=== PATIENT | female | born 1945 | race Caucasian/White ===

== ENCOUNTER 2018-01-28 16:34 | Inpatient (IN) ==
[2018-02-03 12:25] VITALS: BP 157/95
== END 2018-02-03 14:30 | disposition home or self-care (01) | DRG 305 ==
LOC: N.ED 16:34 → N.EDINP 18:41 → SUATTDRO 18:41 → N.3E 19:13
PROVIDERS: ADMIT Internal Medicine; ATTEND Internal Medicine

== ENCOUNTER 2018-03-24 02:48 | Inpatient (IN) ==
[2018-03-24] MEDS ORDERED: SODIUM CHLORIDE 0.9% 1,000 ML IV STA (03:00)
[2018-03-24] MEDS ORDERED: DILTIAZEM 50 MG/10 ML VIAL IV STA (03:03)
[2018-03-24] MEDS ORDERED: DILTIAZEM 25 MG/5 ML VIAL IV ONE ×2 (03:10→11:21)
[2018-03-24 03:45] LABS: Basophils % 0.2 % (0.0-0.8); Eosinophils # 0.1 10*3/uL (0.0-0.87); Eosinophils % 0.4 % (0.00-10.9); Hematocrit 42.7 VOL% (35.7-47.0); Hemoglobin 14.2 GM/DL (12.0-16.0); Immature Granulocytes % 0.5 %; Immature Granulocytes Absolute 0.08 #; Lymphocytes # 1.3 10*3/uL (1.4-4.0); Lymphocytes % 8.3 % (21.3-54.2); Mean Corpuscular HGB Conc 33.3 GM/DL (32-36); Mean Corpuscular Hemoglobin 28 PG (27-34); Mean Corpuscular Volume 83.2 FL (87-102); Mean Platelet Volume 9.6 FL (9.6-12.0); Monocytes # 0.9 10*3/uL (0.11-0.8); Monocytes % 5.2 % (1.7-12.7); Neutrophils # 13.8 10*3/uL (1.4-7.4); Neutrophils % 85.4 % (38.7-73.9); Platelet Count 164 T/CUMM (130-400); Red Blood Count 5.13 MC/CUMM (3.8-5.5); Red Cell Distribution Width 13.4 % (9.3-17.3); White Blood Count 16.2 T/CUMM (4-12)
[2018-03-24 03:56] LABS: Apearance,Urine CLEAR (Clear); Bilirubin,Urine Negative (Negative); Blood, Urine Small mg/dL (Negative); Glucose,Urine (UA) Negative (Negative); Ketones,Urine 20 mg/dL (Negative); Nitrite,Urine Negative (Negative); Protein,Urine 100 MG/DL; RBC,Urine 3 /HPF (0-4); Squamous Epithelial Cell,Urine Occasional /HPF (0-10); Urine Color Straw (Yellow); Urine Urobilinogen < 2.0 EU/DL (0.2-1.0); WBC,Urine 1 /HPF (0-6)
[2018-03-24 04:09] LABS: Albumin 4.3 G/DL (3.4-5.0); Bilirubin,Total 0.5 MG/DL (0.2-1.0); Calcium 10.1 MG/DL (8.5-10.1); Potassium 3.5 MMOL/L (3.5-5.1); Total Protein 8.3 G/DL (6.4-8.3)
[2018-03-24] MEDS ORDERED: diphenhydrAMINE CAP 25 MG CAPSULE PO PRN (05:35)
[2018-03-24] MEDS ORDERED: ALBUTEROL 2.5 MG/3 ML NEB RESP TX PRN (05:35)
[2018-03-24] MEDS ORDERED: ACETAMINOPHEN 325 MG TABLET PO PRN (05:35)
[2018-03-24] MEDS ORDERED: ONDANSETRON 4 MG/2 ML VIAL IV PRN (05:35)
[2018-03-24] MEDS ORDERED: DILTIAZEM INJ 100 MG in SODIUM CHLORIDE 0.9% 100 ML IV SCH (06:00)
[2018-03-24 06:24] LABS: Lactic Acid 3.5 MMOL/L (0.4-2.0)
[2018-03-24] MEDS ORDERED: cloNIDine 0.1 MG TABLET PO PRN (06:44)
[2018-03-24] MEDS: metroNIDAZOLE INJ 500 MG in PREMIX 1 EACH IV SCH ×2 (07:43→17:59)
[2018-03-24 09:29] LABS: Lactic Acid 2.5 MMOL/L (0.4-2.0)
[2018-03-24] MEDS: LEVOFLOXACIN INJ 500 MG in PREMIX 1 EACH IV SCH (10:22)
[2018-03-24] MEDS: CYANOCOBALAMIN 500 MCG TABLET PO SCH (10:23)
[2018-03-24] MEDS: PANTOPRAZOLE 40 MG TABLET PO SCH (10:23)
[2018-03-24] MEDS: MAGNESIUM CHLORIDE 64 MG TABLET PO SCH ×2 (10:23→21:08)
[2018-03-24] MEDS: POTASSIUM CHLORIDE 20 MEQ TABLET PO SCH (10:23)
[2018-03-24] MEDS: CLOPIDOGREL 75 MG TABLET PO SCH (10:23)
[2018-03-24] MEDS: TORSEMIDE 20 MG TABLET PO SCH (10:23)
[2018-03-24] MEDS: OMEGA 3 ACID ETHYL ESTERS 1 GM CAPSULE PO SCH (10:23)
[2018-03-24] MEDS: OLMESARTAN 20 MG TABLET PO SCH (10:24)
[2018-03-24] MEDS: ASPIRIN EC 81 MG TABLET PO SCH (10:24)
[2018-03-24] MEDS: amLODIPine 10 MG TABLET PO SCH (10:24)
[2018-03-24] MEDS: METHYLDOPA 500 MG TABLET PO SCH ×2 (10:27→21:08)
[2018-03-24] MEDS: PANTOPRAZOLE 40 MG VIAL IV SCH (10:28)
[2018-03-24] MEDS ORDERED: METOPROLOL TARTRATE 5 MG/5 ML VIAL IV ONE (13:17)
[2018-03-24] MEDS: SOTALOL 80 MG TABLET PO SCH (14:28)
[2018-03-24 15:07] LABS: Lactic Acid 4.1 MMOL/L (0.4-2.0)
[2018-03-24] MEDS: VANCOMYCIN INJ 1,000 MG in SODIUM CHLORIDE 0.9% 250 ML IV SCH (15:15)
[2018-03-24] MEDS: APIXABAN 5 MG TABLET PO SCH ×2 (15:15→21:08)
[2018-03-24] MEDS: SODIUM CHLORIDE 0.9% 1,000 ML IV SCH ×2 (17:53→17:59)
[2018-03-24] MEDS: NEBIVOLOL 10 MG TABLET PO SCH (21:09)
[2018-03-24] MEDS: ROSUVASTATIN 10 MG TABLET PO SCH (21:09)
[2018-03-25] MEDS: SOTALOL 80 MG TABLET PO SCH ×3 (00:13→21:43)
[2018-03-25] MEDS: SODIUM CHLORIDE 0.9% 1,000 ML IV SCH ×2 (03:50→18:12)
[2018-03-25] MEDS: VANCOMYCIN INJ 1,000 MG in SODIUM CHLORIDE 0.9% 250 ML IV SCH (04:20)
[2018-03-25] MEDS: metroNIDAZOLE INJ 500 MG in PREMIX 1 EACH IV SCH (06:00)
[2018-03-25 07:23] LABS: Basophils % 0.3 % (0.0-0.8); Eosinophils # 0.1 10*3/uL (0.0-0.87); Eosinophils % 1.1 % (0.00-10.9); Hematocrit 36.6 VOL% (35.7-47.0); Hemoglobin 12.3 GM/DL (12.0-16.0); Immature Granulocytes % 0.6 %; Immature Granulocytes Absolute 0.04 #; Lymphocytes # 0.8 10*3/uL (1.4-4.0); Lymphocytes % 13.2 % (21.3-54.2); Mean Corpuscular HGB Conc 33.6 GM/DL (32-36); Mean Corpuscular Hemoglobin 28 PG (27-34); Mean Corpuscular Volume 83.2 FL (87-102); Mean Platelet Volume 9.2 FL (9.6-12.0); Monocytes # 0.5 10*3/uL (0.11-0.8); Monocytes % 8.6 % (1.7-12.7); Neutrophils # 4.8 10*3/uL (1.4-7.4); Neutrophils % 76.2 % (38.7-73.9); Red Cell Distribution Width 13.5 % (9.3-17.3); White Blood Count 6.3 T/CUMM (4-12)
[2018-03-25 07:26] LABS: Platelet Count 113 T/CUMM (130-400)
[2018-03-25 07:49] LABS: Calcium 8.6 MG/DL (8.5-10.1); Potassium 3.6 MMOL/L (3.5-5.1)
[2018-03-25] MEDS: LEVOFLOXACIN INJ 500 MG in PREMIX 1 EACH IV SCH (12:02)
[2018-03-25] MEDS: CYANOCOBALAMIN 500 MCG TABLET PO SCH (12:03)
[2018-03-25] MEDS: MAGNESIUM CHLORIDE 64 MG TABLET PO SCH ×2 (12:03→21:41)
[2018-03-25] MEDS: PANTOPRAZOLE 40 MG TABLET PO SCH (12:04)
[2018-03-25] MEDS: TORSEMIDE 20 MG TABLET PO SCH (12:05)
[2018-03-25] MEDS: amLODIPine 10 MG TABLET PO SCH (12:05)
[2018-03-25] MEDS: OLMESARTAN 20 MG TABLET PO SCH (12:05)
[2018-03-25] MEDS: POTASSIUM CHLORIDE 20 MEQ TABLET PO SCH (12:05)
[2018-03-25] MEDS: OMEGA 3 ACID ETHYL ESTERS 1 GM CAPSULE PO SCH (12:05)
[2018-03-25] MEDS: METHYLDOPA 500 MG TABLET PO SCH ×2 (12:06→21:44)
[2018-03-25] MEDS: ASPIRIN EC 81 MG TABLET PO SCH (12:06)
[2018-03-25] MEDS: CLOPIDOGREL 75 MG TABLET PO SCH (12:06)
[2018-03-25] MEDS: APIXABAN 5 MG TABLET PO SCH ×2 (12:06→21:41)
[2018-03-25] MEDS: PANTOPRAZOLE 40 MG VIAL IV SCH (12:14)
[2018-03-25] MEDS: DOXAZOSIN 1 MG TABLET PO SCH ×2 (12:17→21:44)
[2018-03-25] MEDS: CHLORTHALIDONE 25 MG TABLET PO SCH (15:47)
[2018-03-25] MEDS: ROSUVASTATIN 10 MG TABLET PO SCH (21:42)
[2018-03-25] MEDS: NEBIVOLOL 10 MG TABLET PO SCH (21:43)
[2018-03-25] MEDS: ISOSORBIDE DINITRATE 20 MG TABLET PO SCH (21:44)
[2018-03-26 04:27] LABS: Basophils % 0.5 % (0.0-0.8); Eosinophils # 0.2 10*3/uL (0.0-0.87); Eosinophils % 3.3 % (0.00-10.9); Hematocrit 32.9 VOL% (35.7-47.0); Immature Granulocytes % 0.3 %; Immature Granulocytes Absolute 0.02 #; Lymphocytes # 1.2 10*3/uL (1.4-4.0); Lymphocytes % 16.8 % (21.3-54.2); Mean Corpuscular HGB Conc 33.4 GM/DL (32-36); Mean Corpuscular Hemoglobin 28 PG (27-34); Mean Corpuscular Volume 83.5 FL (87-102); Monocytes # 0.7 10*3/uL (0.11-0.8); Monocytes % 9.1 % (1.7-12.7); Neutrophils # 5.1 10*3/uL (1.4-7.4); Platelet Count 118 T/CUMM (130-400); Red Blood Count 3.94 MC/CUMM (3.8-5.5); Red Cell Distribution Width 13.5 % (9.3-17.3); White Blood Count 7.3 T/CUMM (4-12)
[2018-03-26 04:43] LABS: Calcium 9.1 MG/DL (8.5-10.1); Osmolality,Calculated 284.1 MOS/KG (273-304); Potassium 3.5 MMOL/L (3.5-5.1)
[2018-03-26] MEDS: POTASSIUM CHLORIDE 20 MEQ TABLET PO SCH (09:33)
[2018-03-26] MEDS: amLODIPine 10 MG TABLET PO SCH (09:33)
[2018-03-26] MEDS: PANTOPRAZOLE 40 MG TABLET PO SCH (09:33)
[2018-03-26] MEDS: TORSEMIDE 20 MG TABLET PO SCH (09:33)
[2018-03-26] MEDS: SOTALOL 80 MG TABLET PO SCH (09:34)
[2018-03-26] MEDS: DOXAZOSIN 1 MG TABLET PO SCH ×2 (09:34→22:03)
[2018-03-26] MEDS: CYANOCOBALAMIN 500 MCG TABLET PO SCH (09:34)
[2018-03-26] MEDS: ISOSORBIDE DINITRATE 20 MG TABLET PO SCH ×2 (09:35→22:04)
[2018-03-26] MEDS: CHLORTHALIDONE 25 MG TABLET PO SCH (09:36)
[2018-03-26] MEDS: OMEGA 3 ACID ETHYL ESTERS 1 GM CAPSULE PO SCH (09:36)
[2018-03-26] MEDS: MAGNESIUM CHLORIDE 64 MG TABLET PO SCH ×2 (09:36→22:04)
[2018-03-26] MEDS: METHYLDOPA 500 MG TABLET PO SCH ×2 (09:37→22:04)
[2018-03-26] MEDS: APIXABAN 5 MG TABLET PO SCH ×2 (09:38→22:04)
[2018-03-26] MEDS: CLOPIDOGREL 75 MG TABLET PO SCH (09:38)
[2018-03-26] MEDS: ASPIRIN EC 81 MG TABLET PO SCH (09:38)
[2018-03-26] MEDS: OLMESARTAN 20 MG TABLET PO SCH (09:38)
[2018-03-26] MEDS: PANTOPRAZOLE 40 MG VIAL IV SCH (09:39)
[2018-03-26] MEDS: ROSUVASTATIN 10 MG TABLET PO SCH (22:04)
[2018-03-26] MEDS: NEBIVOLOL 10 MG TABLET PO SCH (22:04)
[2018-03-27] MEDS: SOTALOL 80 MG TABLET PO SCH ×3 (01:33→21:15)
[2018-03-27 03:55] LABS: Basophils % 0.4 % (0.0-0.8); Eosinophils # 0.2 10*3/uL (0.0-0.87); Eosinophils % 2.3 % (0.00-10.9); Hematocrit 35.8 VOL% (35.7-47.0); Hemoglobin 12.3 GM/DL (12.0-16.0); Immature Granulocytes % 0.4 %; Immature Granulocytes Absolute 0.03 #; Lymphocytes # 1.2 10*3/uL (1.4-4.0); Lymphocytes % 15.7 % (21.3-54.2); Mean Corpuscular HGB Conc 34.4 GM/DL (32-36); Mean Corpuscular Hemoglobin 28 PG (27-34); Mean Corpuscular Volume 80.3 FL (87-102); Mean Platelet Volume 9.6 FL (9.6-12.0); Monocytes # 0.6 10*3/uL (0.11-0.8); Monocytes % 8.5 % (1.7-12.7); Neutrophils # 5.4 10*3/uL (1.4-7.4); Neutrophils % 72.7 % (38.7-73.9); Platelet Count 146 T/CUMM (130-400); Red Blood Count 4.46 MC/CUMM (3.8-5.5); Red Cell Distribution Width 13.3 % (9.3-17.3); White Blood Count 7.5 T/CUMM (4-12)
[2018-03-27 04:11] LABS: Osmolality,Calculated 288.1 MOS/KG (273-304); Potassium 3.2 MMOL/L (3.5-5.1)
[2018-03-27] MEDS ORDERED: MAGNESIUM SULF RIDER 2 GM in PREMIX 1 EACH IV ONE (07:35)
[2018-03-27] MEDS: CHLORTHALIDONE 25 MG TABLET PO SCH (09:00)
[2018-03-27] MEDS: OLMESARTAN 20 MG TABLET PO SCH (09:27)
[2018-03-27] MEDS: TORSEMIDE 20 MG TABLET PO SCH (09:28)
[2018-03-27] MEDS: MAGNESIUM CHLORIDE 64 MG TABLET PO SCH ×2 (09:28→21:15)
[2018-03-27] MEDS: OMEGA 3 ACID ETHYL ESTERS 1 GM CAPSULE PO SCH (09:28)
[2018-03-27] MEDS: PANTOPRAZOLE 40 MG TABLET PO SCH (09:30)
[2018-03-27] MEDS: CYANOCOBALAMIN 500 MCG TABLET PO SCH (09:30)
[2018-03-27] MEDS: DOXAZOSIN 1 MG TABLET PO SCH ×2 (09:30→21:14)
[2018-03-27] MEDS: CLOPIDOGREL 75 MG TABLET PO SCH (09:30)
[2018-03-27] MEDS: ISOSORBIDE DINITRATE 20 MG TABLET PO SCH ×2 (09:30→21:15)
[2018-03-27] MEDS: POTASSIUM CHLORIDE 20 MEQ TABLET PO SCH (09:31)
[2018-03-27] MEDS: APIXABAN 5 MG TABLET PO SCH ×2 (09:32→21:15)
[2018-03-27] MEDS: POTASSIUM CHLORIDE 20 MEQ TABLET PO PRN ×3 (09:32→14:26)
[2018-03-27] MEDS: METHYLDOPA 500 MG TABLET PO SCH (09:32)
[2018-03-27] MEDS: amLODIPine 10 MG TABLET PO SCH (09:33)
[2018-03-27] MEDS: ASPIRIN EC 81 MG TABLET PO SCH (09:33)
[2018-03-27] MEDS ORDERED: NEBIVOLOL 10 MG TABLET PO SCH (16:40)
[2018-03-27] MEDS: ROSUVASTATIN 10 MG TABLET PO SCH (21:15)
[2018-03-28 04:19] LABS: Basophils % 0.5 % (0.0-0.8); Eosinophils # 0.2 10*3/uL (0.0-0.87); Eosinophils % 2.2 % (0.00-10.9); Hematocrit 36.6 VOL% (35.7-47.0); Hemoglobin 12.7 GM/DL (12.0-16.0); Immature Granulocytes % 0.3 %; Immature Granulocytes Absolute 0.02 #; Lymphocytes # 1.3 10*3/uL (1.4-4.0); Lymphocytes % 16.8 % (21.3-54.2); Mean Corpuscular HGB Conc 34.7 GM/DL (32-36); Mean Corpuscular Hemoglobin 28 PG (27-34); Mean Corpuscular Volume 80.3 FL (87-102); Mean Platelet Volume 9.6 FL (9.6-12.0); Monocytes # 0.6 10*3/uL (0.11-0.8); Monocytes % 8.6 % (1.7-12.7); Neutrophils # 5.3 10*3/uL (1.4-7.4); Neutrophils % 71.6 % (38.7-73.9); Platelet Count 156 T/CUMM (130-400); Red Blood Count 4.56 MC/CUMM (3.8-5.5); Red Cell Distribution Width 13.2 % (9.3-17.3); White Blood Count 7.4 T/CUMM (4-12)
[2018-03-28 04:52] LABS: Calcium 9.3 MG/DL (8.5-10.1); Osmolality,Calculated 285.5 MOS/KG (273-304); Potassium 3.5 MMOL/L (3.5-5.1)
[2018-03-28] MEDS: CYANOCOBALAMIN 500 MCG TABLET PO SCH (09:13)
[2018-03-28] MEDS: OLMESARTAN 20 MG TABLET PO SCH (09:14)
[2018-03-28] MEDS: CHLORTHALIDONE 25 MG TABLET PO SCH (09:14)
[2018-03-28] MEDS: SOTALOL 80 MG TABLET PO SCH (09:14)
[2018-03-28] MEDS: TORSEMIDE 20 MG TABLET PO SCH (09:15)
[2018-03-28] MEDS: MAGNESIUM CHLORIDE 64 MG TABLET PO SCH ×2 (09:15→21:39)
[2018-03-28] MEDS: PANTOPRAZOLE 40 MG TABLET PO SCH (09:15)
[2018-03-28] MEDS: amLODIPine 10 MG TABLET PO SCH (09:15)
[2018-03-28] MEDS: DOXAZOSIN 1 MG TABLET PO SCH (09:15)
[2018-03-28] MEDS: ISOSORBIDE DINITRATE 20 MG TABLET PO SCH (09:15)
[2018-03-28] MEDS: APIXABAN 5 MG TABLET PO SCH ×2 (09:15→21:41)
[2018-03-28] MEDS: OMEGA 3 ACID ETHYL ESTERS 1 GM CAPSULE PO SCH (09:15)
[2018-03-28] MEDS: POTASSIUM CHLORIDE 20 MEQ TABLET PO SCH (09:16)
[2018-03-28] MEDS ORDERED: POTASSIUM CHLORIDE 20 MEQ TABLET PO ONE (10:50)
[2018-03-28] MEDS: ROSUVASTATIN 10 MG TABLET PO SCH (21:40)
[2018-03-28] MEDS: AMIODARONE 200 MG TABLET PO SCH (21:41)
[2018-03-29] MEDS: DOXAZOSIN 1 MG TABLET PO SCH ×2 (02:25→09:40)
[2018-03-29 04:06] LABS: Basophils % 0.6 % (0.0-0.8); Eosinophils # 0.1 10*3/uL (0.0-0.87); Eosinophils % 1.9 % (0.00-10.9); Hematocrit 37.2 VOL% (35.7-47.0); Hemoglobin 12.7 GM/DL (12.0-16.0); Immature Granulocytes % 0.4 %; Immature Granulocytes Absolute 0.03 #; Lymphocytes % 28.1 % (21.3-54.2); Mean Corpuscular HGB Conc 34.1 GM/DL (32-36); Mean Corpuscular Hemoglobin 28 PG (27-34); Mean Corpuscular Volume 82.3 FL (87-102); Mean Platelet Volume 9.5 FL (9.6-12.0); Monocytes # 0.7 10*3/uL (0.11-0.8); Monocytes % 10.3 % (1.7-12.7); Neutrophils # 4.1 10*3/uL (1.4-7.4); Neutrophils % 58.7 % (38.7-73.9); Platelet Count 172 T/CUMM (130-400); Red Blood Count 4.52 MC/CUMM (3.8-5.5)
[2018-03-29 04:20] LABS: Calcium 9.3 MG/DL (8.5-10.1); Osmolality,Calculated 287.5 MOS/KG (273-304); Potassium 3.5 MMOL/L (3.5-5.1)
[2018-03-29] MEDS: AMIODARONE 200 MG TABLET PO SCH (09:40)
[2018-03-29] MEDS: TORSEMIDE 20 MG TABLET PO SCH (09:41)
[2018-03-29] MEDS: CHLORTHALIDONE 25 MG TABLET PO SCH (09:41)
[2018-03-29] MEDS: PANTOPRAZOLE 40 MG TABLET PO SCH (09:42)
[2018-03-29] MEDS: OLMESARTAN 20 MG TABLET PO SCH (09:42)
[2018-03-29] MEDS: MAGNESIUM CHLORIDE 64 MG TABLET PO SCH (09:42)
[2018-03-29] MEDS: POTASSIUM CHLORIDE 20 MEQ TABLET PO SCH (09:42)
[2018-03-29] MEDS: amLODIPine 10 MG TABLET PO SCH (09:42)
[2018-03-29] MEDS: OMEGA 3 ACID ETHYL ESTERS 1 GM CAPSULE PO SCH (09:43)
[2018-03-29] MEDS: CYANOCOBALAMIN 500 MCG TABLET PO SCH (09:43)
[2018-03-29] MEDS: APIXABAN 5 MG TABLET PO SCH (09:43)
[2018-03-29 12:07] VITALS: BP 113/54
[2018-03-30] MEDS ORDERED: AMIODARONE 200 MG TABLET PO SCH (09:00)
== END 2018-03-29 15:40 | disposition home or self-care (01) | DRG 309 ==
LOC: N.ED 02:48 → SUATTDRO 05:35 → N.EDINP 05:35 → N.TELEN 06:04
PROVIDERS: ATTEND Hospitalist